=== PATIENT | male | born 1975 | race Caucasian/White ===

== ENCOUNTER 2019-12-12 01:44 | Emergency (ER) | payer MEDICARE, MEDICAID ==
[2019-12-12] MEDS ORDERED: NORMAL SALINE 1000 ML 1,000 ML IV ONE (02:10)
--- NOTE | 2019-12-12 02:33 | ER Document Report ---
ED Psych Disorder / Suicide - General Stated Complaint: POSSIBLE OVERDOSE Time Seen by Provider: 12/12/19 02:00 Notes: Patient is a 44-year-old male who comes emergency department for chief complaint of benzodiazepine overdose. Per EMS patient took 140 mg of Ativan tonight, they also state that patient daily is on a total of 30 mg of Ativan prescribed. I asked this again and nursing confirmed this amount. Patient also states that he drank 4 drinks of Wallace with coke. Patient states he "just wanted to go to sleep". When I asked if he wanted to kill himself or if he had overdosed previously, he states that he overdosed in the past and he does not want to answer his reason for doing this. EMS states that his called them and when they showed up and where there for him patient became very angry and brandished multiple knives before they talked him down and he put them away. He denies any other medications tonight. He is on Abilify, his ADHD medication which is unnamed, and fluoxetine. He denies recreational drugs. - Related Data Allergies/Adverse Reactions: No Known Allergies Allergy (Unverified 08/25/13 13:21) Past Medical History - General Information source: Patient - Social History Smoking Status: Former Smoker Frequency of alcohol use: Social Drug Abuse: Marijuana Lives with: Family Family History: Reviewed & Not Pertinent Musculoskeletal Medical History: Denies Hx Gout - denies hx of gout Psychiatric Medical History: Reports: Hx Attention Deficit Hyperactivity Disorder, Hx Bipolar Disorder, Hx Post Traumatic Stress Disorder Past Surgical History: Reports: Hx Orthopedic Surgery - right ACL repair - Immunizations Hx Diphtheria, Pertussis, Tetanus Vaccination: Yes Review of Systems - Review of Systems Constitutional: No symptoms reported EENT: No symptoms reported Cardiovascular: No symptoms reported Respiratory: No symptoms reported Gastrointestinal: No symptoms reported Genitourinary: No symptoms reported Male Genitourinary: No symptoms reported Musculoskeletal: No symptoms reported Skin: No symptoms reported Hematologic/Lymphatic: No symptoms reported Neurological/Psychological: See HPI Physical Exam - Vital signs Vitals: Resp BP Pulse Ox 8 L 125/100 H 95 12/12/19 01:53 12/12/19 01:53 12/12/19 01:53 - Notes Notes: GENERAL: Drowsy, sleeping but easily aroused. Slightly disheveled HEAD: Normocephalic, atraumatic. EYES: Pupils equal, round, and reactive to light. Extraocular movements intact. ENT: Oral mucosa moist, tongue midline. Oropharynx unremarkable. Airway patent. NECK: Full range of motion. Supple. Trachea midline. No lymphadenopathy. LUNGS: Clear to auscultation bilaterally, no wheezes, rales, or rhonchi. No respiratory distress. Non-tender chest wall. HEART: Regular rate and rhythm. No murmur ABDOMEN: Soft, non-tender. Non-distended. EXTREMITIES: Moves all 4 extremities spontaneously. No edema, normal radial and dorsalis pedis pulses bilaterally. No cyanosis. BACK: no cervical, thoracic, lumbar midline tenderness. No saddle anesthesia, normal distal neurovascular exam. Moves all extremities in full range of motion. NEUROLOGICAL: Drowsy but easily aroused and oriented to person, place, events. Normal speech. Cranial nerves II through XII grossly intact. Strength 5/5 in all extremities. PSYCH: Irritable SKIN: Warm, dry, normal turgor. No rashes or lesions noted. Course - Re-evaluation Re-evalutation: Initially patient is groggy, when he fell asleep he became mildly hypoxic at approximately 92% on room air with respiratory rate of 6, I evaluated him and he aroused, his physical examination is otherwise unremarkable, he is easily aroused, oriented to person, place, events, has no complaints on my evaluation. After this he did not have apnea when he rested. I called and spoke with poison control, the recommendation is that patient not be given Romazicon because he could have a seizure with his benzodiazepine dependence, they recommend supportive therapy such as IV fluids and oxygen, monitoring for 6 hours, then patient can be medically cleared. No additional advice at this time other than basic laboratory work-up and EKG. Patient became hostile, stated he was going to "fight you guys to get out". I explained that patient was here on 24-hour hold because of his intentional overdose and violent behavior towards EMS, this paperwork has been signed by Dr. Reese. After this patient did calm down, he stated that he wanted to be cooperative, he agreed to laboratory work-up and monitoring. Based on patient getting 90 1 mg Ativan tablets with each prescription I think patient, EMS, and significant other are over reporting the amount the patient took. 12/12/19 05:01 Patient is sleeping but is maintaining his airway well, heart rate is 79, respiratory rate is 20, oxygen saturation 95%, blood pressure 142/96. CBC, chemistry, EKG unremarkable, alcohol is 146, urine is still pending. 12/12/19 05:50 Urinalysis and urine drug screen shows marijuana only, unremarkable otherwise. Patient will be medically cleared in approximately 2 hours, patient is pending mental health evaluation, IVC forms have been signed by Dr. Reese. - Vital Signs Vital signs: Temp Pulse Resp BP Pulse Ox 98.8 F 21 H 142/97 H 96 12/12/19 02:10 12/12/19 05:01 12/12/19 05:00 12/12/19 05:01 - Laboratory Result Diagrams: 12/12/19 02:10 12/12/19 02:10 Laboratory results interpreted by me: 12/12/19 12/12/19 12/12/19 02:10 02:10 02:45 WBC 13.0 H RDW 14.6 H Absolute Neuts (auto) 8.4 H Chloride 108 H Glucose 112 H Urine Blood SMALL H Salicylates < 1.0 L Acetaminophen < 10 L - EKG Interpretation by Me Additional EKG results interpreted by me: EKG shows sinus rhythm at a rate of 83, QTC of 442, normal axis, no T wave inversions or ST segment changes in consecutive leads Discharge - Discharge Clinical Impression: Aggressive behavior Intentional benzodiazepine overdose Qualifiers: Encounter type: initial encounter Qualified Code(s): T42.4X2A - Poisoning by benzodiazepines, intentional self-harm, initial encounter Condition: Stable Disposition: PSYCH HOSP/UNIT
[2019-12-12 03:06] LABS: ABSOLUTE BASOPHILS # (AUTO) 0.1 10^3/uL (0.0-0.2); ABSOLUTE EOSINOPHILS # (AUTO) 0.1 10^3/uL (0.0-0.6); ABSOLUTE LYMPHOCYTES (AUTO) 3.8 10^3/uL (0.5-4.7); ABSOLUTE MONOCYTES (AUTO) 0.7 10^3/uL (0.1-1.4); ABSOLUTE NEUT (AUTO) 8.4 10^3/uL (1.7-8.2); BASOPHILS % (AUTO) 0.4 % (0-2); EOSINOPHILS % (AUTO) 0.4 % (0-6); HEMATOCRIT 46.2 % (37.9-51.0); HEMOGLOBIN 15.6 g/dL (13.5-17.0); LYMPHOCYTES % (AUTO) 29.2 % (13-45); MEAN CORPUSCULAR HEMOGLOBIN 30.4 pg (27.0-33.4); MEAN CORPUSCULAR HGB CONC 33.8 g/dL (32.0-36.0); MEAN CORPUSCULAR VOLUME 90 fl (80-97); MONOCYTES % (AUTO) 5.6 % (3-13); PLATELET COUNT 347 10^3/uL (150-450); RED BLOOD COUNT 5.13 10^6/uL (4.35-5.55); RED CELL DISTRIBUTION WIDTH 14.6 % (11.5-14.0); SEGMENTED NEUTROPHILS % (AUTO) 64.4 % (42-78); TOTAL CELLS COUNTED % (AUTO) 100 %
[2019-12-12 03:27] LABS: ALBUMIN 4.7 g/dL (3.5-5.0); ALCOHOL 146 mg/dL (NONE DETECTED); ALKALINE PHOSPHATASE 88 U/L (38-126); ANION GAP 12 (5-19); ASPARTATE AMINO TRANSFERASE 28 U/L (17-59); BILIRUBIN,TOTAL 0.3 mg/dL (0.2-1.3); BLOOD UREA NITROGEN 9 mg/dL (7-20); CALCIUM 9.7 mg/dL (8.4-10.2); CARBON DIOXIDE 22 mmol/L (22-30); CHLORIDE 108 mmol/L (98-107); GLUCOSE 112 mg/dL (75-110); POTASSIUM 4.1 mmol/L (3.6-5.0); TOTAL PROTEIN 7.8 g/dL (6.3-8.2)
[2019-12-12 03:41] LABS: ACETAMINOPHEN < 10 ug/mL (10-30); SALICYLATE < 1.0 mg/dL (2.0-20.0)
[2019-12-12 05:30] LABS: APPEARANCE,URINE CLEAR; BILIRUBIN,URINE NEGATIVE (NEGATIVE); COLOR,URINE YELLOW; GLUCOSE, URINE NEGATIVE (NEGATIVE); KETONES,URINE NEGATIVE (NEGATIVE); LEUKOCYTE ESTERASE,URINE NEGATIVE (NEGATIVE); NITRITE,URINE NEGATIVE (NEGATIVE); PROTEIN,URINE NEGATIVE (NEGATIVE); URINE SPECIFIC GRAVITY 1.006; UROBILINOGEN,URINE NEGATIVE mg/dL (<2.0)
[2019-12-12 05:45] LABS: URINE AMPHETAMINES SCREEN NEGATIVE; URINE BARBITURATES SCREEN NEGATIVE; URINE BENZODIAZEPINES SCREEN NEGATIVE; URINE COCAINE SCREEN NEGATIVE; URINE METHADONE SCREEN NEGATIVE; URINE PHENCYCLIDINE SCREEN NEGATIVE
[2019-12-12 05:49] LABS: URINE MARIJUANA (THC) SCREEN UNCONFIRMED POSITIVE
--- NOTE | 2019-12-12 10:08 | EKG REPORT ---
SEVERITY:- NORMAL ECG - SINUS RHYTHM : Confirmed by: Janay Talavera MD 12-Dec-2019 10:07:26
[2019-12-12 14:12] VITALS: BP 123/88
== END 2019-12-12 14:41 | disposition home or self-care (01) ==
LOC: ER 01:44
DX: Z04.6 Encounter for general psychiatric examination, requested by authority (principal); T42.4X2A Poisoning by benzodiazepines, intentional self-harm, initial encounter; F10.129 Alcohol abuse with intoxication, unspecified; Y90.6 Blood alcohol level of 120-199 mg/100 ml; F31.9 Bipolar disorder, unspecified; F90.9 Attention-deficit hyperactivity disorder, unspecified type; F43.10 Post-traumatic stress disorder, unspecified; Z79.899 Other long term (current) drug therapy; R09.02 Hypoxemia; F13.20 Sedative, hypnotic or anxiolytic dependence, uncomplicated; F12.10 Cannabis abuse, uncomplicated; Z87.891 Personal history of nicotine dependence; Z63.8 Other specified problems related to primary support group
CPT/HCPCS: 93005; 99285; 96360; 96361; 36415; 80307 ×4; 85025; 80053; 81001; 93010; J7030